=== PATIENT | male | born 1960 | race Caucasian/White ===

== ENCOUNTER 2017-09-10 14:30 | Outpatient (RCR) | payer OTHER, SELFPAY | END 2017-09-17 23:59 | LOC: NS 14:30 | PROVIDERS: Family Provider Internal Medicine; PCP Internal Medicine; Visit Provider Internal Medicine | DX: E66.9 Obesity, unspecified (principal); Z68.30 Body mass index [BMI] 30.0-30.9, adult; Z71.3 Dietary counseling and surveillance | CPT/HCPCS: 97802; 97803 ==

== ENCOUNTER 2017-10-02 08:55 | Outpatient (RCR) | payer OTHER, SELFPAY | END 2017-10-18 23:59 | LOC: NS 08:55 | PROVIDERS: Family Provider Internal Medicine; PCP Internal Medicine; Visit Provider Internal Medicine | DX: E66.9 Obesity, unspecified (principal); Z68.30 Body mass index [BMI] 30.0-30.9, adult; Z71.3 Dietary counseling and surveillance | CPT/HCPCS: 97803 ==

== ENCOUNTER 2017-11-06 10:00 | Outpatient (RCR) | payer OTHER, SELFPAY | END 2017-11-17 23:59 | LOC: NS 10:00 | PROVIDERS: Family Provider Internal Medicine; PCP Internal Medicine; Visit Provider Internal Medicine | DX: E66.9 Obesity, unspecified (principal); Z68.30 Body mass index [BMI] 30.0-30.9, adult; Z71.3 Dietary counseling and surveillance | CPT/HCPCS: 97803 ==

== ENCOUNTER 2017-12-16 11:30 | Outpatient (RCR) | payer OTHER, SELFPAY | END 2017-12-16 23:59 | LOC: NS 11:30 | PROVIDERS: Family Provider Internal Medicine; PCP Internal Medicine; Visit Provider Internal Medicine | DX: E66.9 Obesity, unspecified (principal); Z68.30 Body mass index [BMI] 30.0-30.9, adult; Z71.3 Dietary counseling and surveillance | CPT/HCPCS: 97803 ==

== ENCOUNTER 2024-08-05 15:33 | Emergency (ER) | payer OTHER, SELFPAY ==
[2024-08-05 15:33] VITALS: BP 181/90; PULSE 70; RESP 18; TEMP 36.8; O2SAT 98; BMI 30.2
[2024-08-05 17:35] VITALS: BP 138/76; PULSE 78; RESP 18; TEMP 37.2; O2SAT 98
[2024-08-05 18:01] VITALS: BP 142/76; PULSE 89; RESP 16; TEMP 37.2; O2SAT 99
--- NOTE | 2024-08-05 18:01 | CT_ITS ---
PROCEDURE: ABDOMEN/PELVIS WITHOUT CONT 08/05/2024 REASON FOR EXAM: KIDNEY STONE TECHNIQUE: ABDOMEN/PELVIS WITHOUT CONT Noncontrast technique limits evaluation of the abdominal and pelvic viscera. Coronal and Sagittal reconstruction series were provided. One or more dose reduction techniques were used (e.g., Automated exposure control, adjustment of the mA and/or kV according to patient size, use of iterative reconstruction technique). ORAL CONTRAST TYPE: None. COMPARISON: None FINDINGS: Limited sections of the lung bases demonstrate no focal pulmonary mass. The liver, spleen, pancreas, and both adrenal glands demonstrate no acute findings. The gallbladder is contracted. The stomach is unremarkable. The aorta and IVC demonstrate no acute findings. Mild atherosclerosis of the abdominal vasculature. There is no free air, free fluid or intestinal obstruction. The small bowel loops are not dilated. The appendix is normal. No bowel obstruction. Colonic diverticulosis without acute diverticulitis. The pelvic structures are intact. There is no solid pelvic mass. Large 2.2 cm obstructive stone within the distal left ureter with associated upstream moderate left hydroureteronephrosis. The right collecting system is unremarkable. 1.3 cm spiculated stone noted within the urinary bladder lumen. Mildly thickened urinary bladder wall which may reflect cystitis vs nondistention; consider correlation with urinalysis. Visualized osseous structures demonstrate no acute abnormality. CT/Abdomen/Pelvis without Cont IMPRESSION: Large 2.2 cm obstructive stone within the distal left ureter with associated up stream moderate left hydroureteronephrosis. 1.3 cm spiculated stone noted within the urinary bladder lumen. Mildly thicken ed urinary bladder wall which may reflect cystitis vs nondistention; consider correlation with urinalysis. Reading Location: [id number]
[2024-08-05 18:29] LABS: Mucous, Urine 0 SEEN /hpf (<or=2+); Squamous Epithelial Cells - UA 0 SEEN /hpf (0-5)
[2024-08-05 18:35] LABS: Anion Gap 11 (5-15); BUN 17 mg/dL (4-19); BUN/Creat Ratio 13.7 RATIO (10-20); Calcium,Total 9.2 mg/dL (7.6-11.0); Carbon Dioxide 25.6 mmol/L (21.0-32.0); Chloride 104 mmol/L (98-108); Creatinine, Serum 1.24 mg/dL (0.70-1.20); EST Glomerular Filtration Rate 66 (>60); Estimated Creatinine Clearance 89.47 ml/min (50-250); Glucose 111 mg/dL (70-99); Potassium 4.2 mmol/L (3.3-5.1); Sodium Level 141 mmol/L (133-145)
[2024-08-05 18:57] LABS: Color, Urine Yellow (Yellow); Glucose, Dipstick Normal (Normal); Ketone-Dipstick Negative (Negative); Leukocyte Esterase-Dipstick 25 /ul (Negative); Nitrite-Dipstick Negative (Negative); Occult Blood-Urine 150 /ul (Negative); Protein-Dipstick 15 mg/dl (Negative); Specific Gravity, Urine 1.015 (1.002-1.030); Urine Bilirubin Dipstick Negative (Negative); Urine Clarity Clear (Clear); Urine Urobilinogen Normal (Normal)
[2024-08-05 19:14] LABS: Bacteria 1+ /hpf (None Seen); Red Blood Cells-Urine 0-5 SEEN /hpf (0-5); White Blood Cells 0-5 SEEN /hpf (0-5)
[2024-08-05 19:42] VITALS: BP 152/90; PULSE 79; RESP 16; TEMP 36.6; O2SAT 100
[2024-08-05 20:00] VITALS: BP 149/68; PULSE 70; RESP 19; TEMP 36.7; O2SAT 100
--- NOTE | 2024-08-05 20:20 | EDS_ITS ---
HPI History of Present Illness Chief Complaint: Complaint Detail of Chief Complaint: Intermittent left flank pain Informant: patient Onset/Context/Timing Onset: Days Context: Sudden Onset Timing: Intermittent Quality: Pain Location: Left flank Current Severity: Mild Maximum Severity: Severe Worsened by: Nothing Relieved by: Nothing Associated Symptoms Associated Symptoms: Nausea when the pain is severe Narrative Narrative: Patient is a 64-year-old male. He was sent in because of abnormal blood work. His creatinine was slightly elevated 1.42. He also had blood in his urine. Patient reports intermittent atraumatic left flank pain associate with nausea. He cannot find a position of comfort. States the pain is not bad at this time. He denies cardiac or respiratory symptoms. He denies hematuria or dysuria. He does have frequency at times. He has no other complaints. He has no known history of renal ureterolithiasis. Prior similar symptoms: No Recent Illness/Hospitalization: No PFSH PFSH Medical History no medical history no medical history Home Medications ?Medication ?Instructions ?Recorded ?Last Taken ?Type ciprofloxacin HCl 500 mg tablet 500 mg PO BID #14 TABL ETS 08/05/24 Unknown Rx oxycodone-acetaminophen 5 mg-325 1 tab PO Q8H PRN pain 4 days #10 08/05/24 Unknown Rx mg tablet (Percocet) tabs Allergy/AdvReac Type Severity Reaction Status Date / Time No Known Allergies Allergy Verified 08/05/24 15:35 Social History Smoking Status: Never smoker ROS ROS ED Constitutional Constitutional ED: Denies chills, fever(s), subjective, sweats or weight loss Cardiovascular Cardiovascular: Denies chest pain or palpitations Respiratory/Chest Respiratory/Chest: Denies cough, dyspnea or dyspnea on exertion Gastrointestinal Gastrointestinal: Reports abdominal pain and nausea; Denies constipation, diarrhea, melena or vomiting Genitourinary Genitourinary ED: Reports other Details: Patient has microscopic hematuria on UA that was obtained August 03Saturday ; Denies dysuria, hematuria or urinary frequency Musculoskeletal Musculoskeletal: Denies arthralgias or myalgias Integumentary Denies rash Hematologic/Lymphatic Hematologic/Lymphatic: Reports systems reviewed and no addt'l complaints, except as documented EXAM Physical Exam Const Vital Signs: 08/05/24 15:33 08/05/24 17:35 08/05/24 18:01 Temperature 98.3 F 98.9 F 98.9 F Temperature Source Oral Oral Oral Pulse Rate 70 78 89 Respiratory Rate 18 18 16 Blood Pressure 181/90 H 138/76 H 142/76 H Blood Pressure Mean 120 96 98 Pulse Ox 98 98 99 Oxygen Delivery Method Room Air Room Air Room Air 08/05/24 19:42 Temperature 97.8 F Temperature Source Oral Pulse Rate 79 Respiratory Rate 16 Blood Pressure 152/90 H Blood Pressure Mean 110 Pulse Ox 100 Oxygen Delivery Method Room Air Positive well nourished and well developed Constitutional Narrative: Vital signs noted. Blood pressure is slightly elevated. He was experiencing pain at that time. He declined pain medicine for General Appearance ED: well developed and NAD; Negative for pallor HEENT HEENT Narrative: Atraumatic and normocephalic. Ears normal. Eyes PERRL and EOMs intact bilaterally General Eye ED: Negative for scleral icterus Chest Wall palpation of chest normal Resp normal respiratory effort and clear to auscultation bilaterally Cardio regular rate, regular rhythm, S1 normal heart sound, S2 normal heart sound and no murmurs GI normal to inspection, nondistended, normoactive bowel sounds, non-tender, non- distended and no masses; Negative for hepatosplenomegaly Back/Spine no CVA tenderness Extremity normal to inspection General Extremety ED: Negative for edema or tenderness General Extremity: Negative for edema Neuro oriented x3 and CN's II-XII intact bilaterally Sensorium / Orientation: alert Psych mental status grossly normal Skin no rashes or lesions noted, no wounds and skin turgor normal General Skin Exam: elasticity normal; Negative for jaundice or pallor MDM MDM MDM Narrative Medical decision making narrative: Differential diagnosis is flank pain of unknown etiology, obstructing renal stone, obstructing ureteral stone, need to evaluate for infection. Because of his elevated creatinine will repeat BMP. He had a normal white count 2 days ago this was not repeated. Records from [facility] were reviewed. Lab Data Labs: Laboratory Results - last 24 hr 08/05/24 08/05/24 17:58 18:19 Sodium 141 Potassium 4.2 Chloride 104 Carbon Dioxide 25.6 Anion Gap 11 BUN 17 Creatinine 1.24 H Estim Creat Clear Calc 89.47 Est GFR (MDRD) Non-Af 66 BUN/Creatinine Ratio 13.7 Glucose 111 H Calcium 9.2 Urine Color Yellow Urine Clarity Clear Urine pH 6.0 Ur Specific [place] 1.015 Urine Protein 15 H Urine Glucose (UA) Normal Urine Ketones Negative Urine Occult Blood 150 H Urine Nitrite Negative Urine Bilirubin Negative Urine Urobilinogen Normal Ur Leukocyte Esterase 25 H Urine RBC 0-5 SEEN Urine WBC 0-5 SEEN Ur Squamous Epith Cells 0 SEEN Urine Bacteria 1+ Urine Mucus 0 SEEN Radiography Diagnostic Testing: Clinical Impression(s) from Imaging Studies Abdomen/Pelvis CT 08/05/24 18:01 IMPRESSION: Large 2.2 cm obstructive stone within the distal left ureter with associated upstream moderate left hydroureteronephrosis. 1.3 cm spiculated stone noted within the urinary bladder lumen. Mildly thickened urinary bladder wall which may reflect cystitis vs nondistention; consider correlation with urinalysis. Reading Location: [facility] CT was reviewed. Patient has a large 2+ centimeter left distal ureteral stone associated with moderate hydronephrosis. Patient also has a 1.3 cm speculated stone within the bladder. Treatment and Re-Evaluation :: Patient was told he has 2 stones. He passed the 1 which is surprising in light of the size. Since he has bacteria in his urine we will send urine culture and start on antibiotics. He has an appointment to be seen by urologist next week. Images were sent to the [facility]. Patient was given option of be contacting Dr. Savage who is on for urology. He would like to follow-up with his clinic clinic urology. Suspect his elevated creatinine is due to the obstruction due to the 2.2 cm stone. Discharge Plan Triage Chief Complaint: Complaint ED Provider: Rodney Vasquez Dx/Rx/DC Orders Clinical Impression: Hydronephrosis with urinary obstruction due to ureteral calculus, Bladder calculus, Elevated serum creatinine, Bacteriuria, Elevated blood-pressure reading without diagnosis of hypertension Instructions: ED Kidney Stone with Pain Prescriptions: New ciprofloxacin HCl 500 mg tablet 500 mg PO BID Qty: 14 0RF oxycodone-acetaminophen [Percocet] 5-325 mg tablet 1 tab PO Q8H PRN (Reason: pain) 4 Days Qty: 10 0RF Primary Care Provider: Nasrin Ta Referrals: Nasrin Ta MD [Primary Care Provider] - Activity Restrictions/Additional Instructions: 1. Keep your appointment with urologist. 2. Tell your urologist images that were obtained this evening are available on the [facility] radiology site 3. Take medication as needed for pain 4. Take antibiotic until gone 5. If you develop a temperature greater than 100, shaking chills return to the emergency department immediately Print Language: Faroese Disposition Disposition: Home, Self Care
[2024-08-05 20:39] VITALS: BP 159/84; PULSE 79; RESP 16; TEMP 37.2; O2SAT 100
== END 2024-08-05 20:41 | disposition home or self-care (01) ==
PROVIDERS: Emergency Provider Emergency Medicine; PCP Internal Medicine; Visit Provider Emergency Medicine
DX: N13.2 Hydronephrosis with renal and ureteral calculous obstruction (principal); R79.89 Other specified abnormal findings of blood chemistry; N21.0 Calculus in bladder; R82.71 Bacteriuria; R03.0 Elevated blood-pressure reading, without diagnosis of hypertension; R10.9 Unspecified abdominal pain
CPT/HCPCS: 74176; 80048; 81001; 99283